=== PATIENT | male | born 1950 | race Caucasian/White ===

== ENCOUNTER → 2020-10-24 | Outpatient (CLI) | payer MEDICARE ==
[~2020-10-24] MED LIST: ALLERGY RELIEF5 MG PO; APPLE CIDER VI1 EACH PO; CHONDROITIN PO; CRESTOR 10 MG T10 MG PO; CYCLOBENZAPRINE10 MG PO; DIPHENHYDRAMINE25 M1 PO; ELDERBERRY-VIT1 EACH PO; EMGALITY120 MG/1 M SQ; FLOMAX 0.4 MG0.4 MG PO; GLUCOSAMINE PO; HYDROCODON-ACE1 EAC4 PO; IPRATROPIUM BRO30 ML; MAGNESIUM400 M2 PO; PROBIOTIC1 EAC1 PO; RELAFEN750 MG PO; SAW PALMETTO450 MG PO; SINGULAIR10 MG PO; VITAMIN B12-FO1 EACH PO; VITAMIN C500 M4 PO; VITAMIN D350 MCG PO; ZINC50 M1 PO; ZOLMITRIPTAN5 MG PO; [UNRECOGNIZED DRUG - OTHER] PO
[2020-10-24 10:07] LABS: HEMOGLOBIN 15.8 gm/dl (14.0-17.5); RED BLOOD COUNT 5.02 M/UL (4.20-5.50); WHITE BLOOD COUNT 5.6 K/UL (4.5-11.0)
[2020-10-24 10:28] LABS: BUN/CREATININE RATIO 16 (0-10)
== END ==
LOC: OPSV2 08:29
PROVIDERS: Orthopaedic Surgery
DX: Z01.818 Encounter for other preprocedural examination (principal); G56.02 Carpal tunnel syndrome, left upper limb; G56.22 Lesion of ulnar nerve, left upper limb
CPT/HCPCS: 36415; 80048; 85025; 93005

== ENCOUNTER → 2020-10-30 | Day surgery (SDC) | payer MEDICARE | END | disposition home or self-care (01) | LOC: OR 05:50 | DX: G56.02 Carpal tunnel syndrome, left upper limb (principal); G56.22 Lesion of ulnar nerve, left upper limb; M19.90 Unspecified osteoarthritis, unspecified site; I10 Essential (primary) hypertension; E78.5 Hyperlipidemia, unspecified; G43.909 Migraine, unspecified, not intractable, without status migrainosus; G47.30 Sleep apnea, unspecified; Z99.89 Dependence on other enabling machines and devices; Z79.899 Other long term (current) drug therapy | CPT/HCPCS: J0690; J1100; J2001; J2405; J2704; J7120 ==

== ENCOUNTER → 2021-04-05 | Outpatient (CLI) | payer MEDICARE ==
[~2021-04-05] VITALS: Ht 182.9 cm; Wt 93.0 kg
== END ==
LOC: EROP 13:15
DX: U07.1 COVID-19 (principal); Z23 Encounter for immunization; A15.9 Respiratory tuberculosis unspecified; I10 Essential (primary) hypertension
CPT/HCPCS: M0247; Q0247